=== PATIENT | male | born 1985 | race Caucasian/White ===

== ENCOUNTER 2016-06-13 13:06 | Emergency (ER) | payer OTHER ==
[~2016-06-13] VITALS: Ht 175.3 cm; Wt 111.0 kg
[2016-06-13 13:17] VITALS: BP 167/113; PULSE 108; TEMP 36.8; O2SAT 99; Ht 175.3 cm; Wt 111.0 kg
[2016-06-13] MEDS ORDERED: ALLO300T2 PO (13:40)
[2016-06-13] MEDS ORDERED: METO1TAB69 PO (13:40)
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
== END 2016-06-13 14:59 | disposition home or self-care (01) ==
LOC: EDBD 13:06 → C.EDD 13:07
DX: T14.8 Other injury of unspecified body region (principal); V43.52XA Car driver injured in collision with other type car in traffic accident, initial encounter; F41.9 Anxiety disorder, unspecified; I10 Essential (primary) hypertension; M10.9 Gout, unspecified; Z79.899 Other long term (current) drug therapy